=== PATIENT | female | born 1970 | race Caucasian/White ===

== ENCOUNTER 2024-11-17 14:55 | Outpatient (AMB) | payer OTHER, SELFPAY ==
--- NOTE | 2024-11-17 15:18 | A.OFFPC_ITS ---
Vital Signs 11/17/24 15:37 Height 5 ft 2 in Weight 143 lb 6 oz BMI 26.2 BP 120/66 Blood Pressure Location Lt brachial Position Sitting Respiration 14 Pulse 73 Pulse Source Pulse Oximeter Temp 97.9 F Temp Source Oral Pulse Oximetry (%) 96 Oxygen Delivery Method Room Air Intake Visit Reasons: EstablishCareNP Intake Note: establish care Is last menstrual period known: No Post menopausal: Yes Patient : No Allergies No Known Allergies Allergy (Verified 11/17/24 15:19) Tobacco use date assessed: 11/17/24 Dental Screening Dental Screen Date: 11/17/24 Did you have a dental visit in the last 12 months?: Yes Did you have a dental problem in the last 6 months where you did not have access to dental care?: No Was dental information given to patient?: Patient has dentist HPI EstablishCareNP HPI Details New Patient? ?? Prior PCP:?Dr Luke in [facility] Last office visit/CPE:?Jul for CPE Acute issue(s):? Fibromy Recently saw Rheum and Workup under way. Trialed Cymbalta. ?? PMHx:?Anxiety, Depression, Fibromyalgia, Murmur, GERD, Barretts Esophagus Gastro: Dr Donaldson, Lyme 2012, Shingles, Gestational DM Colonoscopy 10/2023 SurgHx:? Umbilical hernia. C-sect. R Breast Bx 2016 Neg FHx:? Mom: Breast CA. Anxiety Subst abuse. Dad: HTN, HLD, Idiopathic Pulm Fibrosis, CAD & Stents Sudden Cardiac . Prostate CA. SocHx: Nonsmoker. EtOH 1-2 dr per night wine. h/o EtOH abuse. No other drug use [facility] Medical History (Updated 11/17/24 @ 16:15 by Jb Fuchs) Anxiety Fibromyalgia Heart murmur delivery delivered Umbilical hernia Family History (Updated 11/17/24 @ 15:43 by Neal Dickey [facility]) Mother Breast cancer Substance abuse FH: mental illness Father Cardiac arrest Substance abuse Sister Bilateral breast cancer Brother Prostate cancer Daughter Juvenile arthritis Maternal Grandfather FH: mental illness Son FH: mental illness Paternal Grandfather High blood pressure Social History Housing: House Patient Tobacco Use Status: Never used Tobacco e-Cigarette/Vaping Use: Never Used Second Hand Smoke Exposure: No service: No Current occupational status: employed 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 1. Little interest or pleasure in doing things: not at all 2. Feeling down, depressed, or hopeless: not at all 3. Trouble falling or staying asleep, or sleeping too much: several days 4. Feeling tired or having little energy: several days 5. Poor appetite or overeating: not at all 6. Feeling bad about yourself - or that you are a failure or have let yourself or your family down: not at all 7. Trouble concentrating on things, such as reading the newspaper or watching television: not at all 8. Moving or speaking so slowly that other people could have noticed. Or the opposite - being so fidgety or restless that you have been moving around a lot more than usual: not at all 9. Thoughts that you would be better off or of hurting yourself in some way: not at all Total score: 2 Depression Screening Interpretation: Negative Depression Screening Done: Yes 92276 - PHQ-9 Billing: Yes Source: Developed by Drs. Stephen Ortiz, Zulay Park, Bebo Miles and colleagues, with an educational laney from [employer]. Thrive Questionnaire Date Thrive assessed: 11/10/24 I am a: Patient What is your living situation today?: I have a steady place to live Within the past 12 months, did the food you bought not last and you didn't have the money to get more?: Never true Within the past 12 months, did you worry whether your food would run out before you got money to buy more?: Never true Do you have trouble paying for medicines?: No Do you have trouble getting transportation to medical appointments?: No Do you have trouble paying your heating and electricity bill?: No Do you have trouble taking care of your child, family member or friend?: No Do you have trouble with day-to-day activities such as bathing, preparing meals, shopping, managing finances, etc.?: No Are you currently unemployed and looking for a job?: No Are you interested in more education?: No Please select the resources that you would like help with: None Currently or been in a relationship where the following occur: No concerns re ported THRIVE Score: 0 AUDIT C Alcohol Use Questionnaire (AUDIT-C) 1. How often do you have a drink containing alcohol?: 4 or more times a week 2. How many drinks containing alcohol do you have on a typical day when you are drinking?: 1 or 2 3. How often do you have six or more drinks on one occasion?: Never Total Score: 4 YON-7 AMB Questionnaire YON-7 Date YON - 7 assessed: 11/17/24 Feeling nervous, anxious, or on edge: 2 = More than half the days Not being able to stop or control worryin = More than half the days Worrying too much about different things: 2 = More than half the days Trouble relaxin = More than half the days Being so restless that it is hard to sit still: 2 = More than half the days Becoming easily annoyed or irritable: 1 = Several days Feeling afraid as if something awful might happen: 1 = Several days Total YON-7 score (0-4 normal; 5-9 mild; 10-14 moderate; 15-21 severe): 12 Source: Developed by Drs. Stephen Ortiz, Zulay Park, Bebo Miles and colleagues, with an educational laney from [employer]. YON-7 Assessment Billing YON-7 Assessment Tool: YON-7 Assessment 97046 Review of Systems Const Denies chills, Denies fatigue, Denies fever(s), Denies headache(s) and Denies weakness ENT Denies dizziness and Denies headache(s) Card Denies chest pain, Denies lightheadedness, Denies dyspnea and Denies other (Palpitations) Resp Denies cough, Denies dyspnea, Denies wheezing and Denies other ( shortness of breath) Musc Denies numbness and Denies tingling Neuro Denies dizziness, Denies headache(s), Denies numbness, Denies tingling, Denies paresthesias and Denies weakness Psych Reports anxiety and Denies depression Endo Denies fatigue Aller/Immun Denies wheezing Physical exam (Primary Care) Vital Signs: Last Vital Signs Temp 97.9 F 11/17/24 15:37 Pulse 73 11/17/24 15:37 Resp 14 11/17/24 15:37 BP 120/66 11/17/24 15:37 Pulse Ox 96 11/17/24 15:37 Oxygen Delivery Method Room Air 11/17/24 15:37 BMI result Body Mass Index 26.2 Tobacco/Smoking Status: Tobacco use Status Tobacco use date assessed 11/17/24 11/17/24 15:28 Patient Tobacco Use Status Never used Tobacco 11/17/24 15:28 e-Cigarette/Vaping Use Never Used 11/17/24 15:28 PHQ-9: PHQ-9 Score PHQ-9: Total score 2 11/17/24 15:40 Depression Screening Interpretation: Negative Thrive Assessment: Date of Thrive Assessment Date Thrive assessed 11/10/24 11/17/24 15:21 Currently or been in a relationship where the following occur: No concerns reported Const General: no acute distress and well developed Nutritional Appearance: well nourished Orientation/consciousness: patient oriented x3 HENMT Head: Yes normocephalic and Yes atraumatic Eyes General: appearance normal, both eyes and all related structures Pupils: Equal, round and reactive pupils present EOM: EOMs intact bilaterally Resp Effort & Inspection: normal respiratory effort Auscultation: clear to auscultation bilaterally Cardio Rate: regular rate Rhythm: regular rhythm Heart sounds: S1 normal heart sound present, S2 normal heart sound present, no gallops, Murmur heart sound present and no rubs Neuro General: patient oriented x3 and gait normal Cranial nerves: Yes Equal, round and reactive pupils present Psych Affect: normal affect Coding Level of Care Code New Pt Level 4 (42021) Diagnoses Anxiety with depression F41.8 GERD (gastroesophageal reflux disease) K21.9 Heart murmur R01.1 Fibromyalgia M79.7 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 Patient?says?she?was?on? fluoxetine?in?the?past.??Has?also?been?given?alprazolam?and?zolpidem?for?an?acut e?adjustment?disorder.??She?says?she?still?has?some?an?uses?it?only?very?rarely. We?discussed?that?a?good?strategy?would ?be?to?use?those?medications?only?very?rarely?and?if?she?is?having?more?frequent ?symptoms?we?would?resume?fluoxetine?as?a?first-line?medication?and?could?use?th e?other?medications?for?breakthrough?symptoms. She?has?a?therapist?and?for?now?if?she?continue?with?therapy. (2) GERD (gastroesophageal reflux disease): Code(s): K21.9 - Gastro-esophageal reflux disease without esophagitis Category: Medical Plan: Continue?omeprazole?and?cholestyramine (3) Heart murmur: Code(s): R01.1 - Cardiac murmur, unspecified Category: Medical Plan: History?of?murmur?and?patient?says?that?her?last?PCP?was?planning?another?echoca rdiogram?as?she?has?not?had?1?in?years. I?have?ordered?this (4) Fibromyalgia: Code(s): M79.7 - Fibromyalgia Category: Medical Plan: Longstanding?fibromyalgia?since?patient?was?about?17?to?19?years?old She?has?tried?numerous?medications?including?gabapentin?and?pregabalin.??Most?re cently?tried?Cymbalta?but?did?not?tolerated. 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 She?is?on?omeprazole Continue?current?medication?regimen?and?follow- up?with?Gastroenterology?as?recommended (6) Polymyalgia: Code(s): M35.3 - Polymyalgia rheumatica Category: Medical Plan: Chronic,?longstanding?symptoms. Distant?history?of?mildly?elevated?VAUGHN?but?no?autoimmune?diagnosis. Now?followed?by?rheumatology?workup?is?underway?with?follow- up?in?about?2?months. Patient?also?has?fibromyalgia?as?mentioned?above.??She?has?an?exercise?routine Follow-up?with?rheumatology?as?recommended (7) Laboratory exam ordered as part of routine general medical examination: Code(s): Z00.00 - Encounter for general adult medical examination without abnormal findings Category: Medical Plan: Check?labs Orders: Orders Comprehensive [place]. Panel Fast Today Z00.00 - Encounter for general adult medical examination without abnormal findings Complete Blood Count Auto Diff Today Z00.00 - Encounter for general adult medical examination without abnormal findings Microalbumin, Random (w Creat) Today I10 - Essential (primary) hypertension Lipid Panel Today Z00.00 - Encounter for general adult medical examination without abnormal findings Vitamin B12 and Folate Today E53.8 - Deficiency of other specified B group vitamins Vitamin D 25-OH Total Today E55.9 - Vitamin D deficiency, unspecified Hepatitis B,C Profile Today Z11.3 - Encounter for screening for infections with a predominantly sexual mode of transmission HIV Ab/Ag Today Z11.3 - Encounter for screening for infections with a predominantly sexual mode of transmission UA and rflx microscopic Today Z00.00 - Encounter for general adult medical examination without abnormal findings TSH reflex Free T4 Today Z00.00 - Encounter for general adult medical examination without abnormal findings Syphilis Screen Today Z11.3 - Encounter for screening for infections with a predominantly sexual mode of transmission CT NG by PCR Today Z11.3 - Encounter for screening for infections with a predominantly sexual mode of transmission Urine Culture Today R30.0 - Dysuria CA echo transthoracic complete Today R01.1 - Cardiac murmur, unspecified Medications: New cholestyramine (with sugar) 4 gram 4 grams PO DAILY 30 days 30 ea 1RF
[2024-11-17 15:37] VITALS: BP 120/66; PULSE 73; RESP 14; TEMP 36.6; O2SAT 96; BMI 26.2
== END 2024-11-17 16:12 | disposition home or self-care (01) ==
PROVIDERS: PCP Family Medicine; Visit Provider Family Medicine
DX: M35.3 Polymyalgia rheumatica (principal); F41.8 Other specified anxiety disorders; K21.9 Gastro-esophageal reflux disease without esophagitis; R01.1 Cardiac murmur, unspecified; M79.7 Fibromyalgia; K22.70 Barrett's esophagus without dysplasia

== ENCOUNTER 2024-11-17 14:55 | Outpatient (REF) | payer OTHER, SELFPAY | END 2024-11-17 14:56 | disposition home or self-care (01) | LOC: HO.LAB 14:55 | PROVIDERS: PCP Family Medicine; Visit Provider Family Medicine | DX: Z76.89 Persons encountering health services in other specified circumstances (principal); F41.8 Other specified anxiety disorders; K21.9 Gastro-esophageal reflux disease without esophagitis; R01.1 Cardiac murmur, unspecified; M79.7 Fibromyalgia; K22.70 Barrett's esophagus without dysplasia; M35.3 Polymyalgia rheumatica; Z79.899 Other long term (current) drug therapy | CPT/HCPCS: 96127; 99202 ==

== ENCOUNTER 2024-11-18 11:27 | Outpatient (REF) | payer OTHER, SELFPAY ==
[2024-11-18 11:40] LABS: Appearance Urine Clear; Color Urine Yellow; Glucose Urine UA Negative (Negative); Leukocyte Esterase Urine Small (1+) (Negative); Nitrite Urine Negative (Negative); UMIC TRIGGER UA YES; Urine Blood Negative (Negative); Urine Ketones Negative (Negative); Urine Protein Negative (Neg-Trace)
[2024-11-18 11:59] LABS: Bacteria Urine Trace (None Seen); Hyaline Casts Urine 0-2 /LPF (0-2); Squamous Epithelial Cell Urine 0-2 /HPF (0-2)
== END 2024-11-18 11:28 | disposition home or self-care (01) ==
LOC: HO.LNP 11:27
PROVIDERS: Visit Provider Family Medicine
DX: R30.0 Dysuria (principal)
CPT/HCPCS: 81001; 87086

== ENCOUNTER → 2024-12-08 15:10 | Outpatient (REF) | payer OTHER, SELFPAY ==
--- NOTE | 2024-12-08 15:09 | CA_ITS ---
Transthoracic Echocardiogram Patient (Last, First, Middle): Tory Gallardo, Gender: Female Date of : 1970 Age: 54 Procedure Date: 12/08/2024 Procedure Type: Transthoracic Echocardiogram Location: OP Height: 157.48 cm Weight: 63.5 kg BSA: 1.64 m2 Heart Rate: bpm BP: 122 / 78 mmHg Traffic Signal Mechanic: TO Referring MD: Jose Blunt MD Symptoms: R01.1 - Cardiac murmur, unspecified Study Quality: Adequate ECG Rhythm: Sinus Conclusions: - The left ventricular systolic function is normal. The calculated ejection fraction is 63% by biplane method. - No obvious valvular pathology seen on this study. - Small plaque is seen in the sino tubular ridge. Findings Left Ventricle Normal left ventricular cavity size. There is normal left ventricular wall thickness. The left ventricular systolic function is normal. The calculated ejection fraction is 63% by biplane method. There is no evidence of regional wall motion abnormalities. Diastolic function is normal for age. Right Ventricle Normal right ventricular cavity size and systolic function. Atria Both atria are normal in size. Aortic Valve There is a normal trileaflet aortic valve. There is no aortic valve stenosis. There is no aortic valve regurgitation. Mitral Valve The mitral valve appears normal. There is no mitral valve regurgitation. There is no mitral valve stenosis. Pulmonic Valve The pulmonic valve is likely normal. Tricuspid Valve There is mild tricuspid valve regurgitation. There is no evidence of pulmonary hypertension. Great Vessels The asc aorta and aortic arch are normal in size. Small plaque is seen in the sino tubular ridge. Venous The inferior vena cava is mildly dilated and collapses greater than 50% with inspiration. Pericardium/Pleural There is no evidence of pericardial effusion. Prior Study Comparison No prior study available for comparison. Recommendations, Care & Conclusions No obvious valvular pathology seen on this study. Measurements 2D Linear Measurements IVSd: 0.79 0.6-0.9/0.6-1.0 cm LVIDd: 4.10 3.9-5.3/4.2-5.9 cm LVIDd Index: 2.50 2.4-3.2/2.2-3.1 cm/m2 LVIDs: 2.87 2.0-3.6 cm LVPWd: 0.68 0.7-1.1 cm LA Diam: 3.00 2.7-3.8/3.0-4.0 cm LAIDs Index: 1.83 1.5-2.3 cm/m2 LV Mass: 108.14 67-162/88-224 g LV Mass Index: 65.94 43-95/49-115 g/m2 LVOT Diam: 1.90 3.0+(-)1.3 cm 2D Systolic Function EF 4C: 63.60 >55% EF 2C: 61.50 >55% EF BiP: 62.50 >55% Mitral Valve MV Pk E: 0.57 MV PK A: 0.53 MV Decel Time: 112.00 E/A: 1.10 E'Lateral: 11.90 E'Medial: 7.18 E/E' Med: 7.90 E/E' Lat: 4.80 PHT: 33.00 MVA PHT: 6.67 Decel Hodgeman: 5.10 Aortic Valve AoV Pk Lev: 1.46 AoV Mn Lev: 0.98 AoV VTI: 0.30 AoV Pk Grad: 9.00 Aov Mn Grad: 4.00 JULIET Cont.VTI: 1.92 LVOT LVOT Pk Lev: 0.97 LVOT Mn Lev: 0.63 LVOT VTI: 0.20 LVOT Pk Grad: 4.00 LVOT Mn Grad: 2.00 LVOT Diam: 1.90 LVOT Area: 2.84 Diastolic Function MV Pk E: 0.57 MV Pk A: 0.53 E/A: 1.10 E'Medial: 7.18 E/E' Med: 7.90 E' Laterial: 11.90 E/E' Lat: 4.80 Right Ventricle TAPSE (mm): 19.70 TVS' Lev: 12.00 Tricuspid Valve TR Pk Lev: 2.06 TR Pk Grad: 17.00 RA Press: 8.00 RVSP: 25.00 Great Vessels Aorta Sinus of Valsalva: 2.84 2.0-3.5 cm Ao Asc: 3.20 2.1-3.4 cm Ao Arch: 3.00 Updated in Other Vendor System with Status of Final Timothy Gomez MD electronically signed on 12/10/2024 2:33:27 PM with status of Final
== END ==
LOC: HO.CARD 15:10
PROVIDERS: PCP Family Medicine; Visit Provider Family Medicine
DX: R01.1 Cardiac murmur, unspecified (principal)
CPT/HCPCS: 93306

== ENCOUNTER 2025-02-02 07:43 | Outpatient (REF) | payer OTHER, SELFPAY ==
[2025-02-02 11:12] LABS: Basophils Percent Auto 0.8 % (0-2); Eosinophils Absolute Auto 0.1 X10*3/uL (0.0-0.4); Eosinophils Percent Auto 2.6 % (0-4); Hematocrit 40.3 % (37.0-47.0); Hemoglobin 13.2 g/dl (12.0-16.0); Imm Gran Abs Auto 0.01 X10*3/uL (0.00-0.03); Imm Gran Pct Auto 0.2 % (0.0-0.4); Lymphocytes Absolute Auto 1.9 X10*3/uL (1.2-4.9); Lymphocytes Percent Auto 36.8 % (20-40); MANUAL DIFF FLAG NO; Mean Corpuscular HGB Conc 32.8 g/dl (31.0-35.0); Mean Corpuscular Hemoglobin 29.7 pg (27.0-33.0); Mean Corpuscular Volume 90.8 fL (80.0-98.0); Mean Platelet Volume 9.5 fL (9.4-12.3); Monocytes Absolute Auto 0.4 X10*3/uL (0.1-1.2); Monocytes Percent Auto 7.3 % (2-11); Neutrophils Absolute Auto 2.6 x10*3/uL (2.0-8.3); Neutrophils Percent Auto 52.3 % (45-73); Platelet Count 315 X10*3/uL (160-400); Red Blood Count 4.44 X10*6/uL (4.20-5.50); Red Cell Distribution Width 12.1 % (11.0-16.0); White Blood Count 5.1 X10*3/uL (4.8-10.8)
[2025-02-02 11:19] LABS: Appearance Urine Clear; Color Urine Yellow; Glucose Urine UA Negative (Negative); Leukocyte Esterase Urine Trace (Negative); Nitrite Urine Negative (Negative); UMIC TRIGGER UA YES; Urine Blood Negative (Negative); Urine Ketones Negative (Negative); Urine Protein Negative (Neg-Trace)
[2025-02-02 11:24] LABS: Bacteria Urine None Seen (None Seen); Hyaline Casts Urine 0-2 /LPF (0-2); RBC Urine 0-2 /HPF (0-2); Squamous Epithelial Cell Urine 0-2 /HPF (0-2); WBC Urine 0-5 /HPF (0-5)
[2025-02-02 11:33] LABS: Alanine Aminotransferase 37 U/L (0-31); Albumin Level 4.6 g/dL (3.5-5.0); Alkaline Phosphatase 91 U/L (39-117); Anion Gap 10 (12-20); Aspartate Amino Transferase 28 U/L (5-31); Bilirubin Total 1.1 mg/dL (0.0-1.0); Blood Urea Nitrogen 16 mg/dL (9-16); Calcium 9.4 mg/dL (8.4-10.2); Carbon Dioxide 27 mmol/L (22-29); Chloride 106 mmol/L (96-108); Cholesterol 197 mg/dL (<200); Estimated Glomerular Filt Rate > 60; Glucose Fasting 107 mg/dL (60-99); HDL Cholesterol 62 mg/dL (>40); LDL Cholesterol Calculated 121 mg/dL (<100); Potassium 3.9 mmol/L (3.3-5.1); Sodium 139 mmol/L (135-145); Total Protein 7.5 g/dL (6.5-8.0); Triglycerides 74 mg/dL (<150)
[2025-02-02 11:48] LABS: TSH reflex Free T4 1.18 uIU/mL (0.32-4.0); Vitamin D 25-OH Total 66.2 ng/mL (>30)
[2025-02-02 11:53] LABS: Creatinine Urine 60.39 mg/dL; Microalbum/Creatinine Ratio Ur 9.9 ug/mg cr (<30)
[2025-02-02 13:19] LABS: CT PCR NOT DETECTED (Not Detect.); NG PCR NOT DETECTED (Not Detect.)
[2025-02-02 14:39] LABS: Folate 13.7 ng/mL (> or = 4.0); Vitamin B12 690 pg/mL (200-900)
[2025-02-03 07:48] LABS: Syphilis Screen Nonreactive (Nonreactive)
[2025-02-03 07:52] LABS: HBS Num1 > 1000.00 mIU/mL (0-7.99); HBc Num1 0.06 S/CO (0.00-0.79); HBsAGNum1 0.29 S/CO (0.00-0.99); HIV AB/AG Nonreactive (Nonreactive); HIV Num 1 0.14 S/CO (0.00-0.99); Hepatitis B Core Antibody Nonreactive (Nonreactive); Hepatitis B Surface Antigen Negative (Negative); ~HepC Num1 0.13 S/CO (0.00-0.79); ~Hepatitis B Surface Antibody REACTIVE (Nonreactive); ~Hepatitis C Antibody Nonreactive (Nonreactive)
== END 2025-02-02 07:44 | disposition home or self-care (01) ==
LOC: HO.WFDLDS 07:43
PROVIDERS: Visit Provider Family Medicine
DX: Z00.00 Encounter for general adult medical examination without abnormal findings (principal); Z11.3 Encounter for screening for infections with a predominantly sexual mode of transmission; E53.8 Deficiency of other specified B group vitamins; I10 Essential (primary) hypertension; E55.9 Vitamin D deficiency, unspecified
CPT/HCPCS: 80053; 80061; 81001; 82043; 82306; 82570; 82607; 82746; 84443; 85025; 86704; 86706; 86780; 86803; 87340; 87389; 87491; 87591

== ENCOUNTER 2025-02-07 15:55 | Outpatient (AMB) | payer OTHER, SELFPAY ==
--- NOTE | 2025-02-07 16:01 | A.OFFPC_ITS ---
Vital Signs 02/07/25 16:03 Height 5 ft 2 in Weight 138 lb 8 oz BMI 25.3 BP 100/68 Blood Pressure Location Lt brachial Position Sitting Respiration 12 Pulse 78 Pulse Source Pulse Oximeter Temp 98.1 F Temp Source Oral Pulse Oximetry (%) 95 Oxygen Delivery Method Room Air Intake Visit Reasons: CPE with f/u labs and health maint. 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 Required: No Is last menstrual period known: No Post menopausal: Yes Patient : No Allergies No Known Allergies Allergy (Verified 02/07/25 16:01) Medication List - Last Reconciled 02/07/25 by Jose Blunt MD alprazolam 0.25 mg PO DAILY cholestyramine (with sugar) 4 gram 4 grams PO DAILY 30 days fluticasone propionate 50 mcg/actuation 1 spray intranasal DAILY gabapentin 300 mg PO BEDTIME inulin (Fiber Gummies) grams PO multivitamin 1 tab PO DAILY omega 7-ato-dwu-fish oil 100-160-1,000 mg (Fish Oil) caps PO omeprazole 20 mg PO BID zolpidem (Ambien) 5 mg PO BEDTIME Tobacco use date assessed: 11/17/24 Dental Screening Dental Screen Date: 11/17/24 HPI CPE with f/u labs and health maint. HPI Details 54 y/o female presents for a CPE with f/ u labs and health maintenance. Labs drawn 02/02/25. Reviewed labs with pt. Fasting glucose 107. Elevated ALT of 37. Triglycerides 74. TC 197. LDL 121. HDL 62. A1c today 5.9%. HPI Comments History of Present Illness Details Documentation assistance for Jose Blunt MD, was provided by Jb Fuchs, Coal Digger on 02/07/2025 at 4:37 PM EST. I, Dr. Blunt, have read, observed, and verified documentation. [facility] Medical History (Updated 02/07/25 @ 16:53 by Jb Fuchs) Anxiety Fibromyalgia Heart murmur delivery delivered Umbilical hernia Family History (Updated 11/17/24 @ 15:43 by DAVE Baca) Mother Breast cancer Substance abuse FH: mental illness Father Cardiac arrest Substance abuse Sister Bilateral breast cancer Brother Prostate cancer Daughter Juvenile arthritis Maternal Grandfather FH: mental illness Son FH: mental illness Paternal Grandfather High blood pressure Social History Housing: House Patient Tobacco Use Status: Never used Tobacco e-Cigarette/Vaping Use: Never Used Second Hand Smoke Exposure: No service: No Current occupational status: employed 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 Current occupational exposures/hazards: No Cognitive needs: No Hearing needs: No Vision needs: Yes Questionnaire Thrive Questionnaire Date Thrive assessed: 11/10/24 I am a: Patient What is your living situation today?: I have a steady place to live Within the past 12 months, did the food you bought not last and you didn't have the money to get more?: Never true Within the past 12 months, did you worry whether your food would run out before you got money to buy more?: Never true Do you have trouble paying for medicines?: No Do you have trouble getting transportation to medical appointments?: No Do you have trouble paying your heating and electricity bill?: No Do you have trouble taking care of your child, family member or friend?: No Do you have trouble with day-to-day activities such as bathing, preparing meals, shopping, managing finances, etc.?: No Are you currently unemployed and looking for a job?: No Are you interested in more education?: No Please select the resources that you would like help with: None Currently or been in a relationship where the following occur: No concerns reported THRIVE Score: 0 YON-7 AMB Questionnaire YON-7 Date YON - 7 assessed: 11/17/24 Source: Developed by Drs. Stephen Ortiz, Zulay Park, Bebo Miles and colleagues, with an educational laney from [employer]. Review of Systems Const Denies chills, Denies fatigue, Denies fever(s), Denies headache(s) and Denies weakness Eyes Denies change in vision ENT Denies dizziness, Denies headache(s), Denies hearing loss, Denies nasal congestion, Denies sinus pain, Denies sinus pressure and Denies sore throat Card Denies chest pain, Denies lightheadedness, Denies dyspnea and Denies other (palpitations) Resp Denies cough, Denies dyspnea and Denies wheezing GI Denies abdominal pain, Denies melena, Denies hematochezia, Denies change in bowel habits, Denies dyspepsia and Denies nausea Denies hematuria and Denies dysuria Musc Denies abnormal gait, Denies myalgias, Denies arthralgias, Denies numbness and Denies tingling Skin/Breast Denies rash, Denies unusual bruising and Denies wounds Neuro Denies abnormal gait, Denies dizziness, Denies headache(s), Denies memory loss, Denies numbness, Denies Sensory deficit (Neuro), Denies tingling and Denies weakness Psych Denies anxiety, Denies depression and Denies memory loss Endo Denies cold intolerance, Denies fatigue, Denies heat intolerance, Denies polydipsia and Denies polyuria Eulogio/Lymph Denies easy bleeding and Denies easy bruising Aller/Immun Denies wheezing Physical exam (Primary Care) Vital Signs: Last Vital Signs Temp 98.1 F 02/07/25 16:03 Pulse 78 02/07/25 16:03 Resp 12 02/07/25 16:03 BP 100/68 02/07/25 16:03 Pulse Ox 95 02/07/25 16:03 Oxygen Delivery Method Room Air 02/07/25 16:03 BMI result Body Mass Index 25.3 Tobacco/Smoking Status: Tobacco use Status Tobacco use date assessed 11/17/24 02/07/25 16:06 Patient Tobacco Use Status Never used Tobacco 02/07/25 16:06 e-Cigarette/Vaping Use Never Used 02/07/25 16:06 Thrive Assessment: Date of Thrive Assessment Date Thrive assessed 11/10/24 02/07/25 16:06 Currently or been in a relationship where the following occur: No concerns reported Const General: no acute distress, well developed, alert and awake Nutritional Appearance: well nourished Orientation/consciousness: patient oriented x3 HENMT Head: Yes normocephalic and Yes atraumatic Ears: hearing grossly normal bilaterally and TM's normal bilaterally General nose exam: Normal external nose present and Normal nares present Mouth: Normal oral and palatal mucosa present and moist mucous membranes Teeth and gingiva: dentition normal Throat: Yes posterior oropharynx normal Eyes General: appearance normal, both eyes and all related structures Pupils: Equal, round and reactive pupils present and Pupil accommodation reflex normal EOM: EOMs intact bilaterally Neck Neck: Yes normal visual inspection, Yes no lymphadenopathy and Yes trachea midline Thyroid: Thyroid normal Carotids: no bruits Lymphatic: no lymphadenopathy noted Chest Chest palpation & inspection: normal inspection of the chest Resp Effort & Inspection: normal respiratory effort Auscultation: clear to auscultation bilaterally Cardio Rate: regular rate Rhythm: regular rhythm Heart sounds: S1 normal heart sound present, S2 normal heart sound present, no gallops, no murmurs and no rubs Bruits: no abdominal aortic bruits and no carotid bruits GI Palpation (GI): No Abdominal aortic bruit present, Soft to palpation, nontender, No hepatosplenomegaly present and No Rebound tenderness present Auscultation: normal bowel sounds General: Yes no CVA tenderness Back/Spine/Pelvis Back: no CVA tenderness Cervical Spine: cervical ROM normal and No Cervical spine tenderness Thoracic/Lumbar Spine: thoraco-lumbar ROM normal, No pain with thoraco-lumbar ROM, No thoracic spinal tenderness and No lumbar spinal tenderness Skin Lesions: no lesions Rashes: no rashes Trauma: no lacerations or abrasions Wounds: no wounds Nails: normal Neuro General: patient oriented x3 Cranial nerves: Yes Equal, round and reactive pupils present Cognition (Neuro): normal cognition Gait exam (Neuro): Normal gait present Motor exam (neuro): 5/5 motor strength present throughout Sensory Exam: No Sensory deficit (Neuro) Deep tendon reflexes (DTR's): Right patellar reflex intensity grade: 2+ and Left patellar reflex intensity grade: 2+ Extrem General: Yes normal to inspection and No edema Psych Appearance: grossly normal Affect: normal affect Attitude: cooperative Thought process: Normal thought process present Results AMB Hemoglobin A1c AMB Hemoglobin A1c 5.9 % Last Edit by DAVE Baca on 02/07/25 16:53 Coding Level of Care Code Est Pt Level 3 (13386) Est Pt Prev Care 40-64y(59542) Diagnoses Adult general medical exam Z00.00 Fibromyalgia M79.7 Elevated LDL cholesterol level E78.00 Elevated ALT measurement R74.01 Screening for colon cancer Z12.11 Screening for cervical cancer Z12.4 Breast cancer screening by mammogram Z12.31 Elevated fasting glucose R73.01 Pre-diabetes R73.03 Assessment & Plan Assessment & Plan (1) Adult general medical exam: Code(s): Z00.00 - Encounter for general adult medical examination without abnormal findings Category: Medical Plan: 54-year-old?female?presents?for?complete?physical?exam Encouraged?healthy?diet?with?active?lifestyle?and?plenty?of?exercise (2) Fibromyalgia: Code(s): M79.7 - Fibromyalgia Category: Medical Plan: Ongoing?fibromyalgia?and?followed?by?rheumatology. She?had?a?workup?for?inflammatory?and?autoimmune?markers?which?was?negative Her?status controller?is?trying?gabapentin?again. (3) Elevated LDL cholesterol level: Code(s): E78.00 - Pure hypercholesterolemia, unspecified Category: Medical Plan: LDL?cholesterol?is?elevated. HDL?ratios?are?good Encouraged?a?diet?lower?in?saturated?fats?and?cholesterol (4) Elevated ALT measurement: Code(s): R74.01 - Elevation of levels of liver transaminase levels Category: Medical Plan: Mildly?elevated?ALT Encouraged?good?hydration Weight?control Will?recheck?in?couple?months (5) Screening for colon cancer: Code(s): Z12.11 - Encounter for screening for malignant neoplasm of colon Category: Medical Plan: 10/16/23 Dr Donaldson @ [facility] f/u in 3 yrs (6) Screening for cervical cancer: Code(s): Z12.4 - Encounter for screening for malignant neoplasm of cervix Category: Medical Plan: Followed by Dr Hyde, [facility]?mash grinder Last?Pap?smear in?2022?and?up-to-date. Continue?screening?with?[facility]?mash grinder?as?recommended (7) Breast cancer screening by mammogram: Code(s): Z12.31 - Encounter for screening mammogram for malignant neoplasm of breast Category: Medical Plan: Mammogram?this?past?fall?was?negative?for?malignancy. She?will?continue?annual?screening Will?request?report?from?[facility] (8) Elevated fasting glucose: Code(s): R73.01 - Impaired fasting glucose Category: Medical Plan: A1c?was?5.9% Pre?diabetes - See below (9) Pre-diabetes: Code(s): R73.03 - Prediabetes Category: Medical Plan: As?above,?elevated?A1c?at?5.9% Encouraged?a?diet?lower?in?sugars?and?starches Encouraged?exercise?and?weight?control History?of?gestational?diabetes. Will?continue?to?monitor?blood?sugars?and?periodically?monitor?A1c Orders: Orders AMB Hemoglobin A1c Today R73.01 - Impaired fasting glucose Lipid Panel Today E78.00 - Pure hypercholesterolemia, unspecified, Z00.00 - Encounter for general adult medical examination without abnormal findings Comprehensive [place]. Panel Fast Today R74.01 - Elevation of levels of liver transaminase levels, Z00.00 - Encounter for general adult medical examination without abnormal findings
[2025-02-07 16:03] VITALS: BP 100/68; PULSE 78; RESP 12; TEMP 36.7; O2SAT 95; BMI 25.3
== END 2025-02-07 16:53 | disposition home or self-care (01) ==
LOC: HO.HMCFM 15:56
PROVIDERS: PCP Family Medicine; Visit Provider Family Medicine
DX: Z00.00 Encounter for general adult medical examination without abnormal findings (principal); R73.03 Prediabetes; M79.7 Fibromyalgia; E78.00 Pure hypercholesterolemia, unspecified; R74.01 Elevation of levels of liver transaminase levels; Z12.11 Encounter for screening for malignant neoplasm of colon; Z12.31 Encounter for screening mammogram for malignant neoplasm of breast; R73.01 Impaired fasting glucose

== ENCOUNTER → 2025-02-07 15:55 | Outpatient (BNVA) | payer OTHER, SELFPAY | PROVIDERS: PCP Family Medicine; Visit Provider Family Medicine | DX: Z00.00 Encounter for general adult medical examination without abnormal findings (principal); M79.7 Fibromyalgia; E78.00 Pure hypercholesterolemia, unspecified; R73.01 Impaired fasting glucose; R73.03 Prediabetes; R74.01 Elevation of levels of liver transaminase levels | CPT/HCPCS: 83036; 99212 ==

== ENCOUNTER 2025-03-29 07:31 | Outpatient (REF) | payer OTHER, SELFPAY ==
[2025-03-29 11:55] LABS: Appearance Urine Clear; Color Urine Yellow; Glucose Urine UA Negative (Negative); Leukocyte Esterase Urine Moderate (2+) (Negative); Nitrite Urine Negative (Negative); Specific Gravity - Urine 1.015 (1.005-1.025); UMIC TRIGGER UA YES; Urine Blood Trace (Negative); Urine Ketones Negative (Negative); Urine Protein Negative (Neg-Trace)
[2025-03-29 12:07] LABS: Bacteria Urine None Seen (None Seen); Calcium Oxalate Crystals Urine Present; Hyaline Casts Urine 0-2 /LPF (0-2); RBC Urine 0-2 /HPF (0-2); Squamous Epithelial Cell Urine 0-2 /HPF (0-2); WBC Urine 0-5 /HPF (0-5)
[2025-03-29 12:27] LABS: Alanine Aminotransferase 31 U/L (0-31); Albumin Level 4.5 g/dL (3.5-5.0); Alkaline Phosphatase 89 U/L (39-117); Anion Gap 10 (12-20); Aspartate Amino Transferase 26 U/L (5-31); Bilirubin Total 1.1 mg/dL (0.0-1.0); Blood Urea Nitrogen 13 mg/dL (9-16); Calcium 9.5 mg/dL (8.4-10.2); Carbon Dioxide 28 mmol/L (22-29); Chloride 105 mmol/L (96-108); Cholesterol 202 mg/dL (<200); Estimated Glomerular Filt Rate > 60; Glucose Fasting 114 mg/dL (60-99); HDL Cholesterol 59 mg/dL (>40); LDL Cholesterol Calculated 125 mg/dL (<100); Sodium 139 mmol/L (135-145); Total Protein 7.3 g/dL (6.5-8.0); Triglycerides 92 mg/dL (<150)
== END 2025-03-29 07:32 | disposition home or self-care (01) ==
LOC: HO.WFDLDS 07:31
PROVIDERS: Visit Provider Family Medicine
DX: Z00.00 Encounter for general adult medical examination without abnormal findings (principal); E78.00 Pure hypercholesterolemia, unspecified; R74.01 Elevation of levels of liver transaminase levels
CPT/HCPCS: 36415; 80053; 80061; 81001

== ENCOUNTER → 2025-04-11 14:48 | Outpatient (BNVA) | payer OTHER, SELFPAY | PROVIDERS: PCP Family Medicine; Visit Provider Family Medicine ==

== ENCOUNTER → 2025-04-11 14:48 | Outpatient (AMB) | payer OTHER, SELFPAY ==
--- NOTE | 2025-04-11 14:44 | MHC.PC.OV ---
Intake Visit Reasons: f/u labs via telemedicine Allergies No Known Allergies Allergy (Verified 04/11/25 14:45) Medication List - Last Reconciled 04/11/25 by Jose Blunt MD alprazolam 0.25 mg PO DAILY cholestyramine (with sugar) 4 gram 4 grams PO DAILY 30 days fluticasone propionate 50 mcg/actuation 1 spray intranasal DAILY gabapentin 900 mg PO BEDTIME inulin (Fiber Gummies) grams PO multivitamin 1 tab PO DAILY omega 0-xlg-uat-fish oil 100-160-1,000 mg (Fish Oil) caps PO omeprazole 20 mg PO DAILY 90 days zolpidem (Ambien) 5 mg PO BEDTIME Tobacco use date assessed: 11/17/24 Dental Screening Dental Screen Date: 11/17/24 HPI f/u labs via telemedicine HPI Details 54 y/o female presents to f/u labs via telemedicine. Labs drawn 03/29/25. Reviewed labs with pt. Triglycerides 92. TC 202. LDL 125. HDL 59. Fasting glucose 114. A1c in January 5.9%. [facility] Medical History (Updated 02/07/25 @ 16:53 by Jb Fuchs) Anxiety Fibromyalgia Heart murmur delivery delivered Umbilical hernia Family History (Updated 11/17/24 @ 15:43 by Neal Dickey [facility]) Mother Breast cancer Substance abuse FH: mental illness Father Cardiac arrest Substance abuse Sister Bilateral breast cancer Brother Prostate cancer Daughter Juvenile arthritis Maternal Grandfather FH: mental illness Son FH: mental illness Paternal Grandfather High blood pressure Social History Housing: House Patient Tobacco Use Status: Never used Tobacco e-Cigarette/Vaping Use: Never Used Second Hand Smoke Exposure: No service: No Current occupational status: employed 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 Current occupational exposures/hazards: No Cognitive needs: No Hearing needs: No Vision needs: Yes Questionnaire Thrive Questionnaire Date Thrive assessed: 11/10/24 I am a: Patient What is your living situation today?: I have a steady place to live Within the past 12 months, did the food you bought not last and you didn't have the money to get more?: Never true Within the past 12 months, did you worry whether your food would run out before you got money to buy more?: Never true Do you have trouble paying for medicines?: No Do you have trouble getting transportation to medical appointments?: No Do you have trouble paying your heating and electricity bill?: No Do you have trouble taking care of your child, family member or friend?: No Do you have trouble with day-to-day activities such as bathing, preparing meals, shopping, managing finances, etc.?: No Are you currently unemployed and looking for a job?: No Are you interested in more education?: No Please select the resources that you would like help with: None Currently or been in a relationship where the following occur: No concerns reported THRIVE Score: 0 YON-7 AMB Questionnaire YON-7 Date YON - 7 assessed: 11/17/24 Source: Developed by Drs. Stephen Ortiz, Zulay Park, Bebo Miles and colleagues, with an educational laney from [employer]. Review of Systems Const Denies chills, Denies fatigue, Denies fever(s), Denies headache(s) and Denies weakness ENT Denies dizziness and Denies headache(s) Card Denies dyspnea Resp Denies cough, Denies dyspnea, Denies wheezing and Denies other (shortness of breath) Musc Denies numbness and Denies tingling Neuro Denies dizziness, Denies headache(s), Denies numbness, Denies tingling and Denies weakness Psych Denies anxiety and Denies depression Endo Denies fatigue Aller/Immun Denies wheezing Physical exam (Primary Care) Tobacco/Smoking Status: Tobacco use Status Tobacco use date assessed 11/17/24 04/11/25 14:47 Patient Tobacco Use Status Never used Tobacco 04/11/25 14:47 e-Cigarette/Vaping Use Never Used 04/11/25 14:47 Thrive Assessment: Date of Thrive Assessment Date Thrive assessed 11/10/24 04/11/25 14:47 Currently or been in a relationship where the following occur: No concerns reported Telehealth Telehealth Telehealth Platform: Telephone Location of provider rendering services: practice address Location of patient: address on file Patient Identification confirmed using: Name, : Yes Telehealth method: voice only Patient verbally consented to treatment: Yes Patient verbally consented to billing insurance company: Yes Patient informed of any privacy concerns related to visit: Yes Minutes spent on Phone/Video with Pt.: 7 Coding Level of Care Code Tele Est Pt Level 2 (66634) Diagnoses Elevated LDL cholesterol level E78.00 Pre-diabetes R73.03 GERD (gastroesophageal reflux disease) K21.9 Assessment & Plan Assessment & Plan (1) Elevated LDL cholesterol level: Code(s): E78.00 - Pure hypercholesterolemia, unspecified Category: Medical Plan: LDL?cholesterol?is?still?elevated Briefly?discussed?medication?but?patient?would?like?to?continue?working?on?lifestyle?changes Discussed?decreasing?saturated?fats?and?cholesterol?in?diet Will?recheck?in?about?3?months Discussed?that?if?she?is?still?having?trouble?controlling?her?cholesterol?we?should?consider?a?medication.??Patient?agrees. (2) Pre-diabetes: Code(s): R73.03 - Prediabetes Category: Medical Plan: A1c?was?5.9%?at?last?check Too?soon?to?repeat?A1c?but?fasting?blood?sugar?is?still?elevated Encouraged?a?diet?lower?in?sugars?and?starches Will?recheck?next?blood?draw (3) GERD (gastroesophageal reflux disease): Code(s): K21.9 - Gastro-esophageal reflux disease without esophagitis Category: Medical Plan: Refilled?omeprazole She?is?taking?his?once?daily?and?this?is?controlling?her?symptoms. Orders: Orders Comprehensive [place]. Panel Fast Today R73.03 - Prediabetes, Z00.00 - Encounter for general adult medical examination without abnormal findings Hemoglobin A1c Today R73.01 - Impaired fasting glucose, R73.03 - Prediabetes Lipid Panel Today E78.00 - Pure hypercholesterolemia, unspecified, Z00.00 - Encounter for general adult medical examination without abnormal findings Medications: Changed From omeprazole 20 mg PO BID To omeprazole 20 mg PO DAILY 90 days 90 caps 3RF
== END ==
LOC: HO.HMCFM 14:48
PROVIDERS: PCP Family Medicine; Visit Provider Family Medicine
DX: E78.00 Pure hypercholesterolemia, unspecified (principal); R73.03 Prediabetes; K21.9 Gastro-esophageal reflux disease without esophagitis

== ENCOUNTER 2025-07-06 08:27 | Outpatient (REF) | payer OTHER, SELFPAY ==
[2025-07-06 11:12] LABS: Appearance Urine Clear; Glucose Urine UA Negative (Negative); PH 7.0 (5.0-9.0); Specific Gravity - Urine 1.010 (1.005-1.025); UMIC TRIGGER UA YES
[2025-07-06 11:38] LABS: Alanine Aminotransferase 39 U/L (0-31); Albumin Level 4.8 g/dL (3.5-5.0); Alkaline Phosphatase 84 U/L (39-117); Anion Gap 12 (12-20); Aspartate Amino Transferase 29 U/L (5-31); Blood Urea Nitrogen 12 mg/dL (9-16); Calcium 9.5 mg/dL (8.4-10.2); Carbon Dioxide 28 mmol/L (22-29); Chloride 103 mmol/L (96-108); Cholesterol 225 mg/dL (<200); Estimated Glomerular Filt Rate > 60; HDL Cholesterol 58 mg/dL (>40); Potassium 4.0 mmol/L (3.3-5.1); Sodium 139 mmol/L (135-145); Total Protein 7.3 g/dL (6.5-8.0); Triglycerides 97 mg/dL (<150)
[2025-07-06 11:50] LABS: Hemoglobin A1C 136.7084 umol/L; Total Hemoglobin (HGBA1C) 3436.5114 umol/L
== END 2025-07-06 08:28 | disposition home or self-care (01) ==
LOC: HO.WFDLDS 08:27
PROVIDERS: Visit Provider Family Medicine
DX: Z00.00 Encounter for general adult medical examination without abnormal findings (principal); E78.00 Pure hypercholesterolemia, unspecified; R73.01 Impaired fasting glucose; R73.03 Prediabetes
CPT/HCPCS: 36415; 80053; 80061; 81001; 83036

== ENCOUNTER 2025-07-14 16:08 | Outpatient (AMB) | payer OTHER, SELFPAY ==
--- NOTE | 2025-07-14 16:03 | MHC.PC.OV ---
Intake Visit Reasons: f/u on HDL Intake Note: patient here for Telehealth follow up on HDL Machine I Engraver Required: No Is last menstrual period known: No Post menopausal: No Patient : No Allergies No Known Allergies Allergy (Verified 07/14/25 16:03) Tobacco use date assessed: 07/14/25 Dental Screening Dental Screen Date: 07/14/25 Did you have a dental visit in the last 12 months?: Yes Did you have a dental problem in the last 6 months where you did not have access to dental care?: No Was dental information given to patient?: Patient has dentist HPI f/u on HDL HPI Details 54 y/o female presents to f/u lipids, labs via telemedicine. Labs drawn 07/06/25. Reviewed labs with pt. Fasting glucose 115. Elevated ALT of 39. Triglycerides 97. TC 225. LDL 148. HDL 58. PFSH Medical History (Updated 02/07/25 @ 16:53 by Jb Fuchs) Anxiety Fibromyalgia Heart murmur delivery delivered Umbilical hernia Family History (Updated 11/17/24 @ 15:43 by Neal Dickey [facility]) Mother Breast cancer Substance abuse FH: mental illness Father Cardiac arrest Substance abuse Sister Bilateral breast cancer Brother Prostate cancer Daughter Juvenile arthritis Maternal Grandfather FH: mental illness Son FH: mental illness Paternal Grandfather High blood pressure Social History Housing: House Patient Tobacco Use Status: Never used Tobacco e-Cigarette/Vaping Use: Never Used Second Hand Smoke Exposure: No Patient : No service: No Current occupational status: employed 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 Stephen Ortiz, Zulay Park, Bebo Miles and colleagues, with an educational laney from [employer]. Review of Systems Const Denies chills, Denies fatigue, Denies fever(s), Denies headache(s) and Denies weakness ENT Denies dizziness and Denies headache(s) Card Denies dyspnea Resp Denies cough, Denies dyspnea, Denies wheezing and Denies other (shortness of breath) Musc Denies numbness and Denies tingling Neuro Denies dizziness, Denies headache(s), Denies numbness, Denies tingling and Denies weakness Psych Denies anxiety and Denies depression Endo Denies fatigue Aller/Immun Denies wheezing Physical exam (Primary Care) Tobacco/Smoking Status: Tobacco use Status Tobacco use date assessed 07/14/25 07/14/25 16:06 Patient Tobacco Use Status Never used Tobacco 07/14/25 16:06 e-Cigarette/Vaping Use Never Used 07/14/25 16:06 Thrive Assessment: Date of Thrive Assessment Date Thrive assessed 11/10/24 07/14/25 16:06 Telehealth Telehealth Telehealth Platform: Telephone Location of provider rendering services: practice address Location of patient: address on file Patient Identification confirmed using: Name, : Yes Telehealth method: voice only Patient verbally consented to treatment: Yes Patient verbally consented to billing insurance company: Yes Patient informed of any privacy concerns related to visit: Yes Minutes spent on Phone/Video with Pt.: 14 Coding Level of Care Code Tele Est Pt Level 2 (68606) Diagnoses Pre-diabetes R73.03 Elevated ALT measurement R74.01 Elevated LDL cholesterol level E78.00 Fibromyalgia M79.7 Assessment & Plan Assessment & Plan (1) Pre-diabetes: Code(s): R73.03 - Prediabetes Category: Medical Plan: A1c improved from 5.9% to 5.8% Continue working on diet low in sugars and starches Continue exercise (2) Elevated ALT measurement: Code(s): R74.01 - Elevation of levels of liver transaminase levels Category: Medical Plan: Mildly elevated ALT Continue working on good hydration and a little bit of weight loss Will continue to monitor (3) Elevated LDL cholesterol level: Code(s): E78.00 - Pure hypercholesterolemia, unspecified Category: Medical Plan: LDL cholesterol is too high. 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 Panel Fast Today R74.01 - Elevation of levels of liver transaminase levels, Z00.00 - Encounter for general adult medical examination without abnormal findings LDL Cholesterol Direct Today E78.00 - Pure hypercholesterolemia, unspecified, E78.5 - Hyperlipidemia, unspecified Medications: New atorvastatin (Lipitor) 20 mg PO BEDTIME 90 tabs 3RF 90 days
== END 2025-07-14 17:05 | disposition home or self-care (01) ==
LOC: HO.HMCFM 16:08
PROVIDERS: PCP Family Medicine; Visit Provider Family Medicine
DX: R73.03 Prediabetes (principal); R74.01 Elevation of levels of liver transaminase levels; E78.00 Pure hypercholesterolemia, unspecified; M79.7 Fibromyalgia